=== PATIENT | female | born 2005 | race Two or more races ===

== ENCOUNTER → 2025-07-02 | Outpatient (CLI) | payer MEDICAID, SELFPAY ==
--- NOTE | 2025-07-02 09:42 | XR_ITS ---
Examination: Complete OB ultrasound greater than 14 weeks Date and time of exam: July 02, 2025, 0956 hours INDICATIONS: Late to care Findings: Viable intrauterine single fetus with single amniotic sac presentation cephalic Cardiac motion 152 bpm Placenta anterior grade 3 Medical cord insertion 3 vessels seen Amniotic fluid index 8.0 cm spine posterior Cervix 3.9 cm Right ovary 3.5 cm arterial flow Left ovary 2.1 cm arterial flow. Composite estimated gestational age based on BPD, head circumference, abdominal circumference, femur length is 28 weeks 5 days Estimated weight 1244 g. Survey of intracranial anatomy, spinal anatomy, abdominal anatomy, four-chamber heart performed with no abnormalities identified. Impression: Viable intrauterine gestation in cephalic presentation.
== END | disposition home or self-care (01) ==
DX: O09.33 Supervision of pregnancy with insufficient antenatal care, third trimester (principal); Z3A.28 28 weeks gestation of pregnancy
CPT/HCPCS: 76805

== ENCOUNTER 2025-09-14 13:57 | Inpatient (IN) | payer MEDICAID, SELFPAY ==
[2025-09-14] VITALS (71 sets, daily range): BP systolic 108–145; BP diastolic 55–84; PULSE 73–111; RESP 16–96; TEMP 36.8–37.2; O2SAT 94–99; BMI 36.1
--- NOTE | 2025-09-14 12:46 | XR_ITS ---
Examination: Complete OB ultrasound greater than 14 weeks Date and time of exam: September 14, 2025, 1256 hours INDICATIONS: wellbeing Findings: Viable intrauterine single fetus with single amniotic sac presentation cephalic Cardiac motion 145 bpm Placenta anterior grade 3 Umbilical cord insertion 3 vessel seen Amniotic fluid index 8.4 cm spine maternal left. Composite estimated gestational age based on BPD, head circumference, abdominal circumference, femur length is 39 weeks 2 days, estimated weight 3665 g Survey of intracranial anatomy, spinal anatomy, abdominal anatomy, four-chamber heart performed with no abnormalities identified. Impression: Viable intrauterine gestation cephalic presentation Estimated gestational age 39 weeks 2 days.
[2025-09-14 14:56] LABS: Basophils # (Auto) 0.0 Thou/mm3 (0.0-0.2); Basophils % (Auto) 0 % (0-2.5); Eosinophils # (Auto) 0.1 Thou/mm3 (0.0-0.5); Eosinophils % (Auto) 1 % (0-10); Hematocrit 37.5 % (36.0-46.0); Hemoglobin 13.0 g/dL (12.0-16.0); Immature Granulocytes Auto 0.12 Thou/mm3 (0.00-0.00); Lymphocytes # (Auto) 2.7 Thou/mm3 (1.0-4.8); Lymphocytes % (Auto) 28 % (10-50); Mean Corpuscular HGB Conc 34.7 g/dl (31.0-37.0); Mean Corpuscular Hemoglobin 29.0 pg (25.0-35.0); Mean Corpuscular Volume 84 fL (80-100); Monocytes # (Auto) 0.7 Thou/mm3 (0.0-0.8); Monocytes % (Auto) 7 % (0-12); Neutrophils # (Auto) 5.8 Thou/mm3 (1.8-7.7); Neutrophils % (Auto) 62 % (37-80); Nucleated Red Blood Cell # 0.00 Thou/mm3 (0.00-0.00); Nucleated Red Blood Cell % 0 /100 WBC (0); Platelet Count 217 Thou/mm3 (140-440); RDW Standard Deviation 44.5 fL (36.4-46.3); Red Blood Count 4.49 Miln/mm3 (4.00-5.20); White Blood Count 9.3 Thou/mm3 (3.6-11.0)
--- NOTE | 2025-09-14 15:04 | PD.LDHP ---
Documentation for date of: 09/14/25 OB Labor/Induct. HPI History of Present Illness Chief complaint: Induction of labor for postdates : 1 Para: 0 History of sections: No History of : No GILBERT: 09/07/25 Gestational Age (weeks): 41 Gestational Age (days): 0 Indication for induction: post dates History of present illness: The patient is a 20-year-old G1, P0 at 41-0/7 weeks dates consistent with a 28-week ultrasound. She presented from Dr. Tinoco's office for an NST for postdates. Since she was 41 weeks with no plan for delivery. Patient was kept for an induction of labor. Of note she is Rh- and did not receive RhoGAM. Her glucose challenge test was normal. Her group B strep is negative. Cervix in triage is 2 cm dilated 60% effaced -2 station. She was admitted for Cytotec induction of labor she has a category 1 tracing on presentation and was having some irregular contractions. History of Present Dating criteria: LMP confirmed by 2nd trimester US Adequate Care: No Ultrasounds: normal mid trimester US Obstetrical complications: none Medical complications: none Labs Maternal Blood Type: A Neg Labs: Negative: RPR, Hepatitis B, HIV, Chlamydia, Gonorrhea and Group Beta Strep and Unknown: Rubella Titre (Rubella will be drawn on admission. No results seen in prenatals.) Past Medical History Surgical History SURGICAL: Negative Section Past Medical History Comments PMH COMMENT: Patient denies any chronic medical problems including asthma diabetes or hypertension Meds Home Medications and Allergies Home Medications ?Medication ?Instructions ?Recorded ?Confirmed ?Type vitamins no.102-iron 90 1 cap PO QDAY 09/14/25 09/14/25 History mg-folate 1 mg-dha 200 mg capsule Allergies Allergy/AdvReac Type Severity Reaction Status Date / Time No Known Allergies Allergy Verified 09/14/25 13:21 OB Exam Physical Exam Vital signs: Temp Pulse Resp BP Pulse Ox 98.2 F 86 18 120/76 99 09/14/25 12:40 09/14/25 14:13 09/14/25 12:40 09/14/25 14:13 09/14/25 13:09 Constitutional Constitutional: no acute distress and cooperative Comments: Patient is alert and orient x 3 and in no apparent distress. She is Cameroonian-speaking only. Routine Abdominal Exam Abdominal: Present soft Comments: By [facility] approximately 7-1/2 pound baby. Detailed Labor and Delivery Exam Dilation (cm): 2 Effacement (%): 60 Cervix position: posterior station: -2 Consistency: medium Presentation: Vertex Membranes: intact Baseline heart rate: 13 monitor accelerations: 15x15 monitor decelerations: None detention variability: Moderate (11-25) Contraction frequency (min): Irregular Tachysystole: No Contraction intensity: Mild OB Results Labs 09/14/25 14:10 OB Assessment & Plan Assessment and Plan (1) Supervision of high risk in third trimester: Status: Acute Assessment and plan: Admit patient for induction of labor for post dates. Cytotec induction. Additional Plan Induction method: per misoprostol protocol Plan: induction and anticipate NVD
[2025-09-14 15:28] LABS: Syphilis Nonreactive (Nonreactive)
[2025-09-14] MEDS: ACETAMINOPHEN 500 MG TABLET 1000 MG PO (19:46)
[2025-09-14] MEDS: RINGERS LACTATED 1000 ML 1,000 ML 100 ML IV (20:00)
[2025-09-14 21:53] LABS: Rubella, IgG Antibody Reactive (Immune)
--- NOTE | 2025-09-14 22:37 | ESPR_ITS ---
Documentation for date of: 09/14/25 OB Labor Progress Note Pain Control Pain control: epidural Pelvic Exam Dilation (cm): 3-4 Effacement (%): 80 station: -2 Amniotic membrane status: Ruptured Comments: IUPC placed in 2229 Contractions Monitor mode: External Contraction frequency: 1-3 Contraction pattern: Tachysystole Contraction intensity: Mild Status status: Category ll Assessment and Plan Assessment: induction ongoing Plan OB labor note: continuous present management and begin Pitocin augmentation Comments: *Pitocin augmentation if contractions spaced. History of Present Illness HPI The patient is a 20-year-old G1, P0 at 41-0/7 weeks dates consistent with a 28- week ultrasound. She presented from Dr. Tinoco's office for an NST for postdates. Since she was 41 weeks with no plan for delivery. Patient was kept for an induction of labor. Of note she is Rh- and did not receive RhoGAM. Her glucose challenge test was normal. Her group B strep is negative. Cervix in triage is 2 cm dilated 60% effaced -2 station. She was admitted for Cytotec induction of labor she has a category 1 tracing on presentation and was having some irregular contractions. Patient had epidural placed and was reexamined at 2230. Cervix is 3-4 70-2 mid IUPC placed. Clear fluid noted. Plan will be to start Pitocin if the patient's contractions space.
[2025-09-15] VITALS (76 sets, daily range): BP systolic 101–136; BP diastolic 57–84; PULSE 69–160; RESP 8–20; TEMP 36.5–37.8; O2SAT 92–100
[2025-09-15 00:31] LABS: Amphetamine/Metham Scrn,Ur OB Negative (Negative); Benzoylecgonine Screen, Ur OB Negative (Negative); Opiate Screen,Urine OB Negative (Negative); THC Screen,Urine OB Negative (Negative)
[2025-09-15] MEDS: OXYTOCIN in NS 20 units 20 UNIT/1,000 ML BAG 125 UNIT IV (04:03)
[2025-09-15] MEDS: MINERAL OIL 30 ML UDC TOP (04:19)
[2025-09-15] MEDS: KETOROLAC INJ 30 MG/ML VIAL IVP (04:20)
[2025-09-15] MEDS: ceFAZolin/D5W 2 GM IV 2 GM/100 ML BAG IV (04:46)
[2025-09-15] MEDS: TRANEXAMIC ACID 1,000 MG IVPB 1,000 MG/100 ML BAG 200 MG IV ×2 (04:54→05:33)
--- NOTE | 2025-09-15 05:01 | PD.LDDELS ---
Data ([place]) Data Hx Section: No Maternal Blood Type: A Neg Rubella Titre: Positive RPR: Non-reactive Labs: Negative: RPR, Hepatitis B, HIV, Chlamydia, Gonorrhea and Group Beta Strep : 1 Delivery Data ([place]) Labor Data Initiation of labor: Induction Induction/Augmentation Agent: Cytotec-PO and Artificial ROM ROM date: 09/14/25 ROM time: 22:30 Amniotic membrane rupture type: Artificial Amniotic fluid description: Clear Delivery Data EDC: 09/07/25 EDC calculated by:: LMP/early US confirmation Date of arrival to unit: 09/14/25 Onset of labor date: 09/14/25 Onset of labor time: 22:00 Complete dilation date: 09/15/25 Complete dilation time: 03:30 delivery date: 09/15/25 [place] delivery time: 04:03 Gestational age (weeks): 41 Gestational age (days): 1 Placenta delivery date: 09/15/25 Placenta delivery time: 04:10 Stage 1 total time: Labor - Stage 1 Duration 5 hours and 30 minutes Delivered by: Leslie Leiva ([facility]) Delivery nurse: Radha Moss RNC [place] nurse: Chivo Waite RN Manager Highway at delivery: No Support person(s) at delivery: Sister Other staff at delivery: Sarah Beth Parmar Delivery Method Delivery method: Normal Vaginal Delivery Presentation: Vertex position: OA Anesthesia Type Anesthesia Type: Epidural Delivery Room Medications Delivery room medications given: Toradol 30 IV, Ancef 2 g, S NO hemostatic material Delivery room medications: Pitocin 20 u IV and other (TXA x 2) Placenta Placenta delivery description: Spontaneous Cord blood sent to lab: Yes cord blood collection: Cord Blood Type Episiotomy Episiotomy description: None Lacerations #3: Perineal: 2nd degree Periurethral: Bilateral first-degree periurethral Labial: Right labia minora first-degree Perineal repair Sutures used for repair: 4.0 Chromic and other (2-0 chromic) EBL Estimated blood loss (ml): 250 Umbilical Cord cord description: 3 Vessels and Nuchal Cord Additional Procedures Patient is a 20-year-old G1, P0 at 41 weeks all care with Dr. Tinoco who presented to triage for an NST and was kept for an induction of labor. She was induced with Cytotec and eventually AROM. She went on to progressed to complete and pushed approximately 30 minutes delivering a liveborn female at 4:03 AM. Findings liveborn female in the YENIFER presentation with a loose nuchal cord x 1 no meconium Apgars were 9 and 9. Weight was 7 pounds 10 ounces. As the baby was vigorous at , the was placed directly on mother's chest. Delayed cord clamping was performed. The cord was clamped and cut after waiting 2 to 3 minutes. The infant stayed on mom's chest. Cord gases were saved. Cord blood was sent. The placenta was then complete ,spontaneous, and grossly normal delivering approximately 5 minutes after the baby delivered. The patient sustained a jagged second-degree perineal laceration repaired in a standard fashion using 2-0 and 4-0 chromic. She sustained a right periurethral laceration that extended down to her labia minora that was repaired in a standard fashion using multiple sutures of 2-0 and 4-0 chromic. She sustained a small left periurethral laceration repaired using 4-0 chromic. As the tissue was quite swollen and edematous Sno hemostatic material was called for and placed in the vagina to help with hemostasis. Also , the patient had a red Pankaj inserted during repair in order to define anatomy in the periurethral region. This was removed after the repair. The patient started shaking after delivery and spiked a temperature of 100. ?F. She was given IV Toradol and 2 g of Ancef. As her tissue was still oozy she was given TXA. Complications were none. Condition both mom and infant were in stable condition in the delivery room. Complications Complications: None Data ([place]) [place] Data order: 1 's gender: Female Identification band number: [id number] weight (gms): 3458.642 g Weight (pounds): 7 lbs and 10.0 ozs 1 minute: 9 5 minutes: 9
[2025-09-15] MEDS: BENZO/LANO/ALOE (Dermoplast) 60 GM CAN 1 SPRAY TOP (05:11)
--- NOTE | 2025-09-15 07:40 | ESPR_ITS ---
Subjective Subjective Interval history: Delivery type: Patient doing well this morning. No acute complaints. Ambulating, tolerating p.o., and voiding without difficulty. HTN/Pre-E screen negative: No CP, SOB, ALVARADO, visual changes, RUQ pain. : Yes Lochia: diminishing Bowel: Flatus + / BM + Exam Vital Signs Temp Pulse Resp BP Pulse Ox 99.0 F 88 16 120/59 L 100 09/15/25 06:10 09/15/25 06:07 09/15/25 06:10 09/15/25 06:07 09/15/25 04:01 Constitutional Constitutional: no acute distress Routine HEENT Exam Head: Present normocephalic and atraumatic Eye: Present EOMI and PERRL ENT: Present mucous membranes moist Routine Neck Exam Neck: Present supple and trachea midline Routine Respiratory Exam Respiratory: Present chest non-tender, lungs clear, normal breath sounds and no resp distress Routine Cardiovascular Exam Cardiovascular: Present RRR Routine Abdominal Exam Abdominal: Present soft and normoactive bowel sounds Routine Extremities Exam Extremities: Present full ROM Routine Skin Exam Skin: Present intact, dry and warm Routine Neurological Exam Neurological: Present alert, oriented X3 and CN II-XII intact Routine Psychiatric Exam Psychiatric: Present normal affect and normal thought process Objective Labs 09/14/25 14:10 Labs: Laboratory Results - last 24 hr 09/14/25 09/14/25 14:10 22:00 WBC 9.3 RBC 4.49 Hgb 13.0 Hct 37.5 MCV 84 MCH 29.0 MCHC 34.7 RDW Std Deviation 44.5 Plt Count 217 Neut % (Auto) 62 Lymph % (Auto) 28 Atkinson % (Auto) 7 Eos % (Auto) 1 Baso % (Auto) 0 Neut # (Auto) 5.8 Lymph # (Auto) 2.7 Atkinson # (Auto) 0.7 Eos # (Auto) 0.1 Baso # (Auto) 0.0 Immature Gran # (Auto) 0.12 H Absolute Nucleated RBC 0.00 Immature Gran % 1 H Nucleated RBC % 0 Urine Opiates Screen Negative U Amphetamin/Meth Scrn Negative U Cocaine Metab Screen Negative U Marijuana (THC) Screen Negative Syphilis Serology Nonreactive Rubella IgG Antibody Reactive (Immune) Blood Type A Negative Antibody Screen NEGATIVE Blood Bank Wristband ID Yes Assessment & Plan Problem List (1) Supervision of high risk in third trimester: Status: Acute Assessment and plan: 1. Continue routine /post-op care 2. Labs reviewed, cbc appropriate 3. Remove dressing/Biggs 4. Encourage to ambulate, shower 5. Encourage PO intake, breast feeding Time Spent With Patient Time: Total time spent is greater than 50% in coordination of care (as documented) at patient's floor/unit and/or counseling patient:
--- NOTE | 2025-09-15 07:42 | PD.LDDS ---
DS: Providers Provider Date of admission: 09/14/25 13:57 Primary care physician: Physician No Primary/Family Admitting Provider: Leslie Leiva MD ([facility]) Attending Provider on Admission: Abdi Urbina MD Consults: 09/15/25 05:14 Referral Routine Comment: Attending Provider on DC: Abdi Urbina MD Discharging Provider: Abdi Urbina MD DS: Diagnosis Discharge Diagnosis (1) Supervision of high risk in third trimester: Status: Acute (2) (normal spontaneous vaginal delivery): Status: Acute Problem List Completed Was Problem List Reviewed/Reconciled?: Yes Summary/Hosp Course Brief History: The patient is a 20-year-old G1, P0 at 41-0/7 weeks dates consistent with a 28-week ultrasound. She presented from Dr. Tinoco's office for an NST for postdates. Since she was 41 weeks with no plan for delivery. Patient was kept for an induction of labor. Of note she is Rh- and did not receive RhoGAM. Her glucose challenge test was normal. Her group B strep is negative. Cervix in triage is 2 cm dilated 60% effaced -2 station. She was admitted for Cytotec induction of labor she has a category 1 tracing on presentation and was having some irregular contractions. Patient had epidural placed and was reexamined at 2230. Cervix is 3-4 70-2 mid IUPC placed. Clear fluid noted. Plan will be to start Pitocin if the patient's contractions space. Peripartum Data Delivery Method: Normal Vaginal Delivery Episiotomy Description: None Time Spent with Patient Time attestation: Total time spent providing and/or coordinating discharge services: Exam Vital Signs Temp Pulse Resp BP Pulse Ox 99.0 F 88 16 120/59 L 100 09/15/25 06:10 09/15/25 06:07 09/15/25 06:10 09/15/25 06:07 09/15/25 04:01 Discharge Plan Plan Patient Disposition: HOME (Self Care) Patient condition on transfer: Stable Prescriptions/Referrals Prescriptions/Med Rec: New docusate sodium [Stool Softener] 100 mg capsule 100 mg PO QDAY 30 Days Qty: 30 0RF ibuprofen 600 mg tablet 600 mg PO Q6H MDD 4 PRN (Reason: fever or pain) 10 Days Qty: 40 0RF amoxicillin-pot clavulanate 875-125 mg tablet 1 tab PO BID 7 Days Qty: 14 0RF Americaine 20 % aerosol 1 spray topical QID PRN (Reason: skin irritation) 5 Days Qty: 57 0RF Continued PNV 659-fieq-xpxhal-dha 90 mg iron- 1 mg-200 mg capsule 1 cap PO QDAY Referrals: Reuben Tinoco MD [Referring Provider] No Primary/Family,Physician [Primary Care Provider] Patient/Caregiver Discharge Instructions Education Materials: After a Vaginal , After Delivery Concerns Print Language: Palestinian Stand Alone Forms: Britt Award Info., Patient Portal Info Letter Discharge Order Discharge Orders: Discharge (Routine); Ordered 09/15/25 Ordered By: Abdi Urbina Planned Discharge Date 09/15/25
[2025-09-15 10:22] LABS: Basophils # (Auto) 0.0 Thou/mm3 (0.0-0.2); Basophils % (Auto) 0 % (0-2.5); Eosinophils # (Auto) 0.0 Thou/mm3 (0.0-0.5); Eosinophils % (Auto) 0 % (0-10); Hematocrit 29.9 % (36.0-46.0); Hemoglobin 10.2 g/dL (12.0-16.0); Immature Granulocytes Auto 0.11 Thou/mm3 (0.00-0.00); Lymphocytes # (Auto) 1.7 Thou/mm3 (1.0-4.8); Lymphocytes % (Auto) 11 % (10-50); Mean Corpuscular HGB Conc 34.1 g/dl (31.0-37.0); Mean Corpuscular Hemoglobin 28.9 pg (25.0-35.0); Mean Corpuscular Volume 85 fL (80-100); Monocytes # (Auto) 1.0 Thou/mm3 (0.0-0.8); Monocytes % (Auto) 6 % (0-12); Neutrophils # (Auto) 12.7 Thou/mm3 (1.8-7.7); Neutrophils % (Auto) 82 % (37-80); Nucleated Red Blood Cell # 0.00 Thou/mm3 (0.00-0.00); Nucleated Red Blood Cell % 0 /100 WBC (0); Platelet Count 146 Thou/mm3 (140-440); RDW Standard Deviation 44.8 fL (36.4-46.3); Red Blood Count 3.53 Miln/mm3 (4.00-5.20); White Blood Count 15.6 Thou/mm3 (3.6-11.0)
[2025-09-16 00:01] VITALS: BP 109/72; PULSE 79; RESP 18; TEMP 36.8; O2SAT 95
[2025-09-16 04:34] VITALS: BP 122/80; PULSE 77; RESP 14; TEMP 36.6; O2SAT 96
[2025-09-16 08:00] VITALS: BP 117/79; PULSE 86; RESP 18; TEMP 37; O2SAT 97
--- NOTE | 2025-09-16 11:03 | PD.LDDS ---
DS: Providers Provider Date of admission: 09/14/25 13:57 Primary care physician: Physician No Primary/Family Admitting Provider: Leslie Leiva MD ([facility]) Attending Provider on Admission: Abdi Urbina MD Consults: 09/15/25 05:14 Referral Routine Comment: Attending Provider on DC: Magui Waters MD Discharging Provider: Magui Waters MD DS: Diagnosis Discharge Diagnosis (1) (normal spontaneous vaginal delivery): Status: Acute (2) Supervision of high risk in third trimester: Status: Acute (3) Perineal laceration complicating delivery: Status: Acute Problem List Completed Was Problem List Reviewed/Reconciled?: Yes Summary/Hosp Course Brief History: The patient is a 20-year-old G1, P0 at 41-0/7 weeks dates consistent with a 28-week ultrasound. She presented from Dr. Tinoco's office for an NST for postdates. Since she was 41 weeks with no plan for delivery. Patient was kept for an induction of labor. Of note she is Rh- and did not receive RhoGAM. Her glucose challenge test was normal. Her group B strep is negative. Cervix in triage is 2 cm dilated 60% effaced -2 station. She was admitted for Cytotec induction of labor she has a category 1 tracing on presentation and was having some irregular contractions. Patient had epidural placed and was reexamined at 2230. Cervix is 3-4 70-2 mid IUPC placed. Clear fluid noted. Plan will be to start Pitocin if the patient's contractions space./ she delivered on 09/15/2025 and had repair of a second degree perineal and bilateral periurethral minor lacerations and also labial tear repair / see delivery note / Patient is doing well and has no complaints and would like to go home Peripartum Data Delivery Method: Normal Vaginal Delivery Episiotomy Description: None Laceration Description: see Delivery Summary complications: none Status at Discharge Cognitive/behavioral status at discharge: Patient has no complaints no Headache or blurry vision or epigastric pain No Chest pain or SOB No Palpitations No Nausea or vomiting or constipation No Back pain No Dysuria no Dizziness no calf pain / independent ambulation She is voiding spontaneously / adequately Passing flatus yes/ BM Lochia average yes Breast/ Bottle feeding Functional status at discharge: independent ambulation Overall status at discharge: patient is progressing back to baseline Time Spent with Patient Time attestation: Total time spent providing and/or coordinating discharge services: Exam Vital Signs Temp Pulse Resp BP Pulse Ox O2 Del Method 98.6 F 86 18 117/79 97 Room Air 09/16/25 08:00 09/16/25 08:00 09/16/25 08:00 09/16/25 08:00 09/16/25 08:00 09/16/25 08:00 Narrative Exam alert x3 chest clear CVS RRR NO thyromegaly Uterus is nontender Uterus is firm/ appropriate size Just below the umbilicus Bowel sounds present Abdomen soft no problems walking or voiding no hernias noted/no CVAT No calf tenderness Edema mild Discharge Plan Plan Patient Disposition: HOME (Self Care) Patient condition on transfer: Stable Prescriptions/Referrals Prescriptions/Med Rec: New docusate sodium [Stool Softener] 100 mg capsule 100 mg PO QDAY 30 Days Qty: 30 0RF ibuprofen 600 mg tablet 600 mg PO Q6H MDD 4 PRN (Reason: fever or pain) 10 Days Qty: 40 0RF amoxicillin-pot clavulanate 875-125 mg tablet 1 tab PO BID 7 Days Qty: 14 0RF Americaine 20 % aerosol 1 spray topical QID PRN (Reason: skin irritation) 5 Days Qty: 57 0RF Continued PNV 434-swfz-bntgqc-dha 90 mg iron- 1 mg-200 mg capsule 1 cap PO QDAY Referrals: Reuben Tinoco MD [Referring Provider] No Primary/Family,Physician [Primary Care Provider] Patient/Caregiver Discharge Instructions Discharge Activity: activity as tolerated Other Discharge Activity Instructions:: pelvic rest x6 weeks / follow up with her ob in 4 weeks or prn Education Materials: After a Vaginal , After Delivery Concerns Print Language: Burundian Stand Alone Forms: Britt Award Info., Patient Portal Info Letter Discharge Order Discharge Orders: Discharge (Routine); Ordered 09/16/25 Ordered By: Magui Waters Planned Discharge Date 09/16/25
[2025-09-16] MEDS: DIPHTH,PERTUSS(ACELL),TET VAC 0.5 ML SYR- ADULT IMi (12:03)
[2025-09-16 12:15] VITALS: BP 129/77; PULSE 89; RESP 18; TEMP 36.9; O2SAT 96
== END 2025-09-16 13:40 | disposition home or self-care (01) | DRG 560 ==
LOC: S4S1 09-15 04:22 → S4SX 09-15 05:33 → S4NX 09-15 06:14
PROVIDERS: Admitting Provider Obstetrics & Gynecology; Visit Provider Obstetrics & Gynecology
DX: O48.0 Post-term pregnancy (principal); Z37.0 Single live birth; Z3A.41 41 weeks gestation of pregnancy; O69.81X0 Labor and delivery complicated by cord around neck, without compression, not applicable or unspecified; O70.1 Second degree perineal laceration during delivery; O71.82 Other specified trauma to perineum and vulva
CPT/HCPCS: 36415; 59025; 76805; 80307; 85025; 86762; 86780; 86850; 86900; 86901; 90715; J0689; J1885; J2590; J2795; J3490; J7120; A9270